=== PATIENT | female | born 1990 | race Caucasian/White ===

== ENCOUNTER 2023-03-18 00:35 | Emergency (ER) | payer OTHER ==
[~2023-03-18] VITALS: Ht 160 cm; Wt 103.9 kg
[2023-03-18 01:10] VITALS: BP 137/60
--- NOTE | 2023-03-18 03:15 | NUR ---
Dr. Young examining patient.
[2023-03-18] MEDS ORDERED: KETOROLAC 30 MG/ML VIAL IM ONE (03:20)
[2023-03-18] MEDS ORDERED: CYCLOBENZAPRINE 10 MG TAB PO ONE (03:20)
[2023-03-18] MEDS ORDERED: LIDOCAINE 5% 1 EA PATCH TP ONE (03:20)
[2023-03-18] MEDS ORDERED: CYCL-711 PO (03:22)
[2023-03-18] MEDS ORDERED: IBUP-2218 PO (03:22)
[2023-03-18] MEDS ORDERED: ACET-10509 PO (03:22)
[2023-03-18] MEDS ORDERED: LIDO4CRE18 TP (03:22)
[2023-03-18 03:59] VITALS: BP 128/60
--- NOTE | 2023-03-18 03:59 | NUR ---
Patient discharged with v/s stable. Written and verbal after care instructions given and explained. Patient alert, oriented and verbalized understanding of instructions. Ambulatory with steady gait. All questions addressed prior to discharge. ID band removed. Patient advised to follow up with PMD. Rx of Tylenol, Felxeril, Ibuprofen and Lidocaine given. Patient educated on indication of medication including possible reaction and side effects. Opportunity to ask questions provided and answered.
== END 2023-03-18 03:59 | disposition home or self-care (01) ==
LOC: MED 00:35
DX: S39.012A Strain of muscle, fascia and tendon of lower back, initial encounter (principal); Z79.899 Other long term (current) drug therapy; X58.XXXA Exposure to other specified factors, initial encounter; Y93.89 Activity, other specified; Y92.89 Other specified places as the place of occurrence of the external cause; Y99.8 Other external cause status
CPT/HCPCS: 81025; 96372; 99283; J1885